=== PATIENT | male | born 1940 | race Caucasian/White ===

== ENCOUNTER 2022-05-10 10:51 | Emergency (ER) | payer BC, MEDICARE ==
[2022-05-10 11:57] LABS: ESTIMATED GFR 86 mL/min (>60)
== END 2022-05-10 13:15 | disposition home or self-care (01) ==
LOC: FB.ED 10:51
DX: M54.12 Radiculopathy, cervical region (principal); Z79.899 Other long term (current) drug therapy
CPT/HCPCS: 36415; 70450; 71045; 80053; 84484; 85025; 85610; 85730; 93005; 99284

== ENCOUNTER 2025-04-12 14:25 | Emergency (ER) | payer MEDICARE ==
[2025-04-12] MEDS: Diphtheria,Pertussis(Acell),Tetanus Vaccine 0.5 ML Syringe IM ONE (15:15)
== END 2025-04-12 15:20 | disposition home or self-care (01) ==
LOC: FB.ED 14:25
DX: S71.111A Laceration without foreign body, right thigh, initial encounter (principal); Z23 Encounter for immunization; W26.8XXA Contact with other sharp object(s), not elsewhere classified, initial encounter; Y93.89 Activity, other specified
CPT/HCPCS: 12002; 90471; 90715; 99282; J2003